=== PATIENT | male | born 1980 | race Caucasian/White ===

== ENCOUNTER 2024-01-22 15:42 | Emergency (ER) | payer OTHER, BC | END 2024-01-22 18:01 | disposition home or self-care (01) | LOC: MW.ED 15:42 | DX: S79.912A Unspecified injury of left hip, initial encounter (principal); Z75.8 Other problems related to medical facilities and other health care; X50.0XXA Overexertion from strenuous movement or load, initial encounter; Y99.0 Civilian activity done for income or pay | CPT/HCPCS: 73502-26-LT; 73502-LT; 99283 ==